=== PATIENT | male | born 1990 | race American Indian/Alaskan Native ===

== ENCOUNTER 2019-02-19 22:27 | Emergency (ER) | payer SELFPAY ==
[2019-02-19 22:36] VITALS: BP 121/79
== END 2019-02-19 23:05 | disposition left against medical advice (07) ==
LOC: ED 22:27
DX: Z04.1 Encounter for examination and observation following transport accident (principal); Z53.21 Procedure and treatment not carried out due to patient leaving prior to being seen by health care provider